=== PATIENT | male | born 1950 | race Hispanic/Latino ===

== ENCOUNTER 2023-01-11 10:32 | Emergency (ER) | payer SELFPAY ==
[2023-01-11 11:08] LABS: Urine Bacteria None Seen /HPF (<20); Urine RBC >50 /HPF (None Seen)
[2023-01-11 11:09] LABS: Specific Gravity 1.024 (1.005-1.030); Urine Clarity Extremely Turbid (Clear); Urine Color Dark-Red (Yellow); Urine Glucose Trace (Negative)
[2023-01-11 11:10] LABS: Urine Bilirubin NEGATIVE (Negative); Urine Blood 3+ (Negative); Urine Protein 3+ (Negative); Urine Urobilinogen Normal (Normal); Urine pH 7.5 (5.0-7.0)
--- NOTE | 2023-01-11 11:37 | EDPHYS ---
Physician Documentation [facility] Name: Bao Acevedo Age: 72 yrs Sex: Male : 1950 Arrival Date: 01/11/2023 Time: 10:32 Bed 20 Private MD: ED Physician Osmany Jonas HPI: 01/11 10:45 This 72 yrs old Male presents to ER via Ambulatory with complaints of Blood In snw Urine. 10:45 The patient presents with hematuria. Onset: The symptoms/episode began/occurred snw suddenly. Associated signs and symptoms: The patient has no apparent associated signs or symptoms. The patient has not experienced similar symptoms in the past. chemo for renal cell per MD in [place]. Historical: - Allergies: 10:42 No Known Allergies; hb - PMHx: 10:42 Renal CA; hb - Immunization history:: Adult Immunizations up to date. - Social history:: Smoking status: unknown. ROS: 10:44 Constitutional: Negative for fever, chills, and weight loss, Eyes: Negative for injury, snw pain, redness, and discharge, ENT: Negative for injury, pain, and discharge, Neck: Negative for injury, pain, and swelling, Cardiovascular: Negative for chest pain, palpitations, and edema, Respiratory: Negative for shortness of breath, cough, wheezing, and pleuritic chest pain, Abdomen/GI: Negative for abdominal pain, nausea, vomiting, diarrhea, and constipation, Back: Negative for injury and pain, MS/Extremity: Negative for injury and deformity, Skin: Negative for injury, rash, and discoloration, Neuro: Negative for headache, weakness, numbness, tingling, and seizure, Psych: Negative for depression, anxiety, suicide ideation, homicidal ideation, and hallucinations. 10:44 : Positive for urinary symptoms, hematuria. Exam: 10:44 Constitutional: This is a well developed, well nourished patient who is awake, alert, snw and in no acute distress. Head/Face: Normocephalic, atraumatic. Eyes: Pupils equal round and reactive to light, extra-ocular motions intact. Lids and lashes normal. Conjunctiva and sclera are non-icteric and not injected. Cornea within normal limits. Periorbital areas with no swelling, redness, or edema. ENT: Nares patent. No nasal discharge, no septal abnormalities noted. Tympanic membranes are normal and external auditory canals are clear. Oropharynx with no redness, swelling, or masses, exudates, or evidence of obstruction, uvula midline. Mucous membranes moist. Neck: Trachea midline, no thyromegaly or masses palpated, and no cervical lymphadenopathy. Supple, full range of motion without nuchal rigidity, or vertebral point tenderness. No Meningismus. Chest/axilla: Normal chest wall appearance and motion. Nontender with no deformity. No lesions are appreciated. Cardiovascular: Regular rate and rhythm with a normal S1 and S2. No gallops, murmurs, or rubs. Normal PMI, no JVD. No pulse deficits. Respiratory: Lungs have equal breath sounds bilaterally, clear to auscultation and percussion. No rales, rhonchi or wheezes noted. No increased work of breathing, no retractions or nasal flaring. Abdomen/GI: Soft, non-tender, with normal bowel sounds. No distension or tympany. No guarding or rebound. No evidence of tenderness throughout. Back: No spinal tenderness. No costovertebral tenderness. Full range of motion. Skin: Warm, dry with normal turgor. Normal color with no rashes, no lesions, and no evidence of cellulitis. MS/ Extremity: Pulses equal, no cyanosis. Neurovascular intact. Full, normal range of motion. Neuro: Awake and alert, GCS 15, oriented to person, place, time, and situation. Cranial nerves II-XII grossly intact. Motor strength 5/5 in all extremities. Sensory grossly intact. Cerebellar exam normal. Normal gait. Psych: Awake, alert, with orientation to person, place and time. Behavior, mood, and affect are within normal limits. Vital Signs: 10:41 BP 171 / 104; Pulse 87; Resp 18; Temp 97.8(O); Pulse Ox 99% on R/A; Pain 2/10; hb 11:00 BP 141 / 89; Pulse 85; Resp 16; Pulse Ox 98% on R/A; eh3 11:30 BP 144 / 91; Pulse 80; Resp 16; Pulse Ox 98% on R/A; eh3 10:41 Pain Scale: Adult hb MDM: 10:43 Patient medically screened. snw 10:49 Differential diagnosis: nonspecific abdominal pain, UTI, prostatitis, urethritis. Data snw reviewed: vital signs, nurses notes. Counseling: I had a detailed discussion with the patient and/or guardian regarding: the historical points, exam findings, and any diagnostic results supporting the discharge/admit diagnosis, the presence of at least one elevated blood pressure reading (>120/80) during this emergency department visit, lab results, the need for outpatient follow up, for definitive care. Special discussion: Based on the history and exam findings, there is no indication for further emergent testing or inpatient evaluation. I discussed with the patient/guardian the need to see the primary care provider for further evaluation of the symptoms. I discussed with the patient/guardian the need to see the urologist for further evaluation of the symptoms. 11:35 ED course: 133/78, Pt in no distress, appt with Oncologist in [place] in 2 weeks. Pt snw will rted prn worsening o/w will keep appt . 01/11 10:35 Order name: Urine W/Microscopic (UAM); Complete Time: 11:15 snw 01/11 10:35 Order name: Urine Culture snw 01/11 11:19 Order name: Recheck VS; Complete Time: 11:46 snw Administered Medications: 11:50 Drug: Ciprofloxacin PO 500 mg Route: PO; eh3 12:01 Follow up: Response: No adverse reaction eh3 Disposition: 12:11 Co-signature as Attending Physician, Osmany RESTREPO was immediately available on-site ms3 in the Emergency Department for consultation in the care of the patient. Disposition Summary: 01/11/23 11:36 Discharge Ordered Location: Home snw Condition: Stable snw Diagnosis - Hematuria, unspecified snw Followup: snw - With: Emergency Department - When: As needed - Reason: Worsening of condition Followup: snw - With: Private Physician - When: 1 - 2 days - Reason: Recheck today's complaints, Continuance of care, Re-evaluation by your physician Discharge Instructions: - Discharge Summary Sheet snw - Hematuria, Adult snw - Managing Chemotherapy Side Effects, Adult snw Forms: - Medication Reconciliation Form snw - Thank You Letter snw - Antibiotic Education snw - Prescription Opioid Use snw - Patient Portal Instructions snw Prescriptions: - Cipro 500 mg Oral Tablet - take 1 tablet by ORAL route every 12 hours for 10 days; 20 tablet; Refills: 0, snw Product Selection Permitted Signatures: Dispatcher [employer] EDMS Azeb, Irina, SCHOOL AGE TEACHER-C SCHOOL AGE TEACHER-Csnw Crissy Panda, RN RN Osmany Jonas DO DO ms3 Aline Combs, RN RN eh3
--- NOTE | 2023-01-11 11:37 | ER ---
Nurse's Notes [facility] Name: Bao Acevedo Age: 72 yrs Sex: Male : 1950 Arrival Date: 01/11/2023 Time: 10:32 Bed 20 Private MD: Diagnosis: Hematuria, unspecified Presentation: 01/11 10:41 Chief complaint: Blood in urine and lower abdominal pain since this morning. Has been hb receiving chemo for renal CA x 2 months. Coronavirus screen: At this time, the client does not indicate any symptoms associated with coronavirus-19. Ebola Screen: No symptoms or risks identified at this time. Initial Sepsis Screen: Does the patient meet any 2 criteria? No. Patient's initial sepsis screen is negative. Does the patient have a suspected source of infection? No. Patient's initial sepsis screen is negative. Risk Assessment: Do you want to hurt yourself or someone else? Patient reports no desire to harm self or others. Onset of symptoms was January 11, 2023. 10:41 Method Of Arrival: Ambulatory hb 10:41 Acuity: DOMITILA 3 hb Historical: - Allergies: 10:42 No Known Allergies; hb - PMHx: 10:42 Renal CA; hb - Immunization history:: Adult Immunizations up to date. - Social history:: Smoking status: unknown. Screenin:45 [facility] ED Fall Risk Assessment (Adult) Score/Fall Risk Level 0 - 2 = Low Risk. Abuse eh3 screen: Denies threats or abuse. Denies injuries from another. Nutritional screening: No deficits noted. Tuberculosis screening: No symptoms or risk factors identified. Assessment: 10:45 General: Appears in no apparent distress. comfortable, Behavior is calm, cooperative, eh3 appropriate for age. Pain: Denies pain. Neuro: Level of Consciousness is awake, alert, obeys commands, Oriented to person, place, time, situation. Cardiovascular: Capillary refill < 3 seconds Patient's skin is warm and dry. Respiratory: Airway is patent Respiratory effort is even, unlabored, Respiratory pattern is regular, symmetrical. GI: Abdomen is round non-distended. : Urine is patricia blood. Derm: Skin is healthy with good turgor. Musculoskeletal: Circulation, motion, and sensation intact. Vital Signs: 10:41 BP 171 / 104; Pulse 87; Resp 18; Temp 97.8(O); Pulse Ox 99% on R/A; Pain 2/10; hb 11:00 BP 141 / 89; Pulse 85; Resp 16; Pulse Ox 98% on R/A; eh3 11:30 BP 144 / 91; Pulse 80; Resp 16; Pulse Ox 98% on R/A; eh3 10:41 Pain Scale: Adult hb ED Course: 10:34 Patient arrived in ED. rg4 10:34 Irina Bowie FNP-C [facility]. snw 10:34 Osmany Jonas DO is Attending Physician. snw 10:42 Triage completed. hb 10:43 Arm band placed on. hb 10:45 Aline Combs, RN is Primary Nurse. eh3 10:45 Patient has correct armband on for positive identification. Bed in low position. Call eh3 light in reach. Side rails up X2. Adult w/ patient. Pulse ox on. NIBP on. 12:00 No provider procedures requiring assistance completed. Patient did not have IV access eh3 during this emergency room visit. 12:01 Provided Education on: N/A. eh3 Administered Medications: 11:50 Drug: Ciprofloxacin PO 500 mg Route: PO; eh3 12:01 Follow up: Response: No adverse reaction eh3 Medication: 12:01 VIS not applicable for this client. eh3 Outcome: 11:36 Discharge ordered by . snw 12:00 Discharged to home ambulatory, with family. eh3 12:00 Condition: stable 12:00 Discharge instructions given to patient, family, Instructed on discharge instructions, follow up and referral plans. medication usage, Demonstrated understanding of instructions, follow-up care, medications, Prescriptions given X 1. 12:01 Patient left the ED. eh3 Signatures: Irina Bowie FNP-C FNP-Csnw Crissy Panda RN RN Milo Jess rg4 Aline Combs, OMAR RN eh3 Corrections: (The following items were deleted from the chart) 11:59 11:45 Aline Combs, OMAR is Primary Nurse. eh3 eh3
[2023-01-11 12:08] VITALS: BP 144/91; TEMP 97.8; O2SAT 98
== END 2023-01-11 12:01 | disposition home or self-care (01) ==
LOC: ER 10:32
DX: R31.9 Hematuria, unspecified (principal)
CPT/HCPCS: 81001; 87086; 87088; 99284